=== PATIENT | female | born 1990 | race Caucasian/White ===

== ENCOUNTER 2017-11-01 16:37 | Emergency (ER) | payer MEDICAID ==
[2014-08-18 08:57] VITALS: BMI 24.8
[~2017-11-01 16:37] MED LIST: HYDROCODON-ACE1 EAC7 PO; IBUPROFEN600 MG PO; MACROBID100 MG PO; OXYBUTYNIN CHLOR5 MG PO; PRENATAL COMPLE1 TAB PO; PRENAVITE1 TAB PO
== END 2017-11-01 18:57 | disposition home or self-care (01) ==
LOC: D.ER 16:37
DX: N76.4 Abscess of vulva (principal)

== ENCOUNTER 2018-06-16 09:50 | Emergency (ER) | payer MEDICAID ==
[~2018-06-16] VITALS: Ht 157.5 cm; Wt 54.5 kg
[2018-06-16 10:01] VITALS: BP 112/61; Ht 157.5 cm; Wt 54.5 kg
== END 2018-06-16 10:51 | disposition left against medical advice (07) ==
LOC: D.ER 09:50
DX: O26.891 Other specified pregnancy related conditions, first trimester (principal); Z3A.13 13 weeks gestation of pregnancy; N89.8 Other specified noninflammatory disorders of vagina; E11.9 Type 2 diabetes mellitus without complications

== ENCOUNTER 2018-06-16 13:02 | Outpatient (CLI) | payer MEDICAID ==
[~2018-06-16] VITALS: Ht 157.5 cm; Wt 54.5 kg
--- NOTE | ~2018-06-16 | OP ---
PATIENT NAME: BISMARK LUCAS MEDICAL RECORD: [id number] :86 LOCATION:D.OPS ADMISSION DATE: SURGEON: OZ MARLEY MD DATE OF OPERATION: 06/16/2018 PREOPERATIVE DIAGNOSES: 1. Incomplete . 2. Gestational age of 14 weeks. POSTOPERATIVE DIAGNOSES: 1. Incomplete . 2. Gestational age of 14 weeks. PROCEDURES: 1. Exam under anesthesia. 2. Manual extraction of placenta. 3. Curettage with evacuation. SURGEON: Oz Marley MD ANESTHESIOLOGIST: Flavio Moffett MD ANESTHETIC: General. FINDINGS: Cervix is dilated with evidence of umbilical cord at the os. Copious amounts of bleeding and clot are found in the vault and active bleeding continues. Copious products of conception and placental tissue were removed. SPECIMEN REMOVED: Products of conception. SPECIMEN DISPOSITION: Pathology. ESTIMATED BLOOD LOSS: 500. FLUIDS: Lactated Ringer's 800 cc. URINE OUTPUT: Quantity sufficient void prior to this procedure. COMPLICATIONS: None. DRAINS: Barragan to gravity. INDICATION: The patient is a 27-year-old female who presents to the Emergency Room with heavy vaginal bleeding. The patient is known to pass the fetus en route. The patient continues to have heavy bleeding. On evaluation, she was found to have umbilical cord at the introitus and continued bleeding. DESCRIPTION OF PROCEDURE: After informed consent was assured, the patient was taken to the operating room, where anesthetic was obtained. She was placed in Hieu stirrups and prepped and draped. A speculum was introduced in the vagina and the vaginal vault was cleared of clot. Cord was visualized. Ring forceps were now used to tease placental tissue from the uterus. Bleeding continues and evacuation with suction device followed by curettage was used to obtain good cry throughout. Methergine and misoprostol were given at the close of the procedure. Sponge, lap, and needle counts were correct times 2. The patient OPERATIVE REPORT [id number] BISMARK LUCAS was awakened and went to the recovery room in stable condition. TRANSINT:[id number] Voice Confirmation ID: [id number] DOCUMENT ID: [id number] OZ MARLEY MD at 1230 CC: [id number] DICTATION DATE: 06/16/18 1604 PALM AND BACK FORGER: 06/16/18 1926 DEP CLI 06/16/18 1909 [place] [id number]
[2018-06-16 14:02] LABS: INR 1.09 (0.85-1.17); PROTIME 13.6 SECONDS (11.6-15.0)
[2018-06-16 14:04] LABS: ALBUMIN 2.7 g/dL (3.4-5.0); ALKALINE PHOSPHATASE 61 U/L (46-116); ALT (SGPT) 9 U/L (10-68); CALC OSMOLALITY 273 mosm/kg (275-300); CALCIUM 8.2 mg/dL (8.5-10.1); CARBON DIOXIDE 25.3 mmol/L (21.0-32.0); CHLORIDE - SERUM 106 mmol/L (98-107); CREATININE - SERUM 0.4 mg/dL (0.6-1.3); GLUCOSE 85 mg/dL (74-106); POTASSIUM - SERUM 3.5 mmol/L (3.5-5.1); PROTEIN - SERUM 6.2 g/dL (6.4-8.2); SODIUM 139 mmol/L (136-145); UREA NITROGEN 4 mg/dL (7-18); eGFR NON AFRICAN AMERICAN > 90 mL/min (90-120)
[2018-06-16 14:06] LABS: BILIRUBIN - TOTAL 0.09 mg/dL (0.2-1.3)
[2018-06-16 14:14] LABS: HEMATOCRIT 31.2 % (36.0-48.0); HEMOGLOBIN 10.6 g/dL (12-16); MCH 30.5 pg (26.0-34.0); MCV 89.9 fL (80.0-100.0); MEAN PLATELET VOLUME 11.2 fL (7.4-10.4); PLATELET COUNT 265 10x3/uL (130-400); RBC 3.47 10x6/uL (4.00-5.40); RDW 12.4 % (11.5-14.5); WBC 20.2 10x3/uL (4.8-10.8)
[2018-06-16 14:31] VITALS: BP 97/54; Ht 157.5 cm; Wt 54.5 kg
[2018-06-16 14:36] LABS: LYMPHOCYTES 15 % (15-50); MONOCYTES 3 % (2-11); NEUTROPHILS 77 % (40-80); PLATELET ESTIMATE NORMAL; PLATELET MORPHOLOGY NORMAL PLT MORPH
== END 2018-06-16 17:55 | disposition home or self-care (01) ==
LOC: D.OPS 13:02 → EDSTATUS 14:00 → D.OPS 17:55
PROVIDERS: Family Medicine
DX: O03.4 Incomplete spontaneous abortion without complication (principal); F12.90 Cannabis use, unspecified, uncomplicated; Z01.812 Encounter for preprocedural laboratory examination

== ENCOUNTER 2021-01-02 00:44 | Emergency (ER) | payer MEDICAID ==
[~2021-01-02] VITALS: Ht 157.5 cm; Wt 54.5 kg
[2021-01-02 00:46] VITALS: Ht 157.5 cm; Wt 54.5 kg
[2021-01-02 01:35] LABS: BILIRUBIN NEGATIVE (NEGATIVE); KETONE NEGATIVE (NEGATIVE); NITRITE NEGATIVE (NEGATIVE); UROBILINOGEN NORMAL mg/dL (< 2)
[2021-01-02 01:38] LABS: BACTERIA MODERATE HPF (NONE SEEN); SQUAMOUS EPITHELIAL 0-5 HPF (0-4)
[2021-01-02 01:43] LABS: HCG URINE NEGATIVE (NEGATIVE)
[2021-01-02] MEDS ORDERED: MACROBID100 MG PO (02:02)
[2021-01-02 02:13] VITALS: BP 126/81
== END 2021-01-02 02:13 | disposition home or self-care (01) ==
LOC: D.ER 00:44
PROVIDERS: Family Medicine
DX: N39.0 Urinary tract infection, site not specified (principal); F17.210 Nicotine dependence, cigarettes, uncomplicated

== ENCOUNTER 2021-01-03 15:00 | Emergency (ER) | payer MEDICAID ==
[~2021-01-03] VITALS: Ht 157.5 cm; Wt 59.1 kg
[2021-01-03 15:12] VITALS: BP 122/69; Ht 157.5 cm; Wt 59.1 kg
== END 2021-01-03 16:24 | disposition home or self-care (01) ==
LOC: D.ER 15:00
DX: A54.9 Gonococcal infection, unspecified (principal)